=== PATIENT | male | born 1975 | race Caucasian/White ===

== ENCOUNTER → 2016-08-23 | Outpatient (CLI) | payer BC ==
[~2016-08-23] MED LIST: BYSTOLIC; COMBIVENT INH14.7 GM; CRESTOR PO; FLEXERIL10 M1 PO; IBUPROFEN800 MG PO; LORTAB 7.5-5001 TAB PO; MAVIK4 MG; NEXIUM; NIASPAN PO; OYSTER CALCIUM500 MG; PERCOCET 5-3251 TAB PO; PRAVACHOL; PRILOSEC PO; TOPROL XL PO; TRICOR PO; VICODIN 5/500 T1 TAB; VICODIN 5/500 T1 TAB PO
--- NOTE | ~2016-08-23 | US37 ---
[facility] A Service of [facility] & [facility] / [facility] RADIOLOGY TEXT RESULTS PATIENT: BARAK LIANG JR LOCATION: [facility] : 77 UNIT #: [id number] AGE: [address]: Hoang Ackerman MD SEX: M ORDER DR: [id number] [facility] [address] [place], [place] [address] [id number] O MR#: [id number] Acc #: [id number] NAME: BARAK LIAGN : 1975 SEX: M STUDY DATE/TIME: 08/23/2016 14:31 UNIT: [facility] ROOM: STUDY DESCRIPTION: US Carotid W/Doppler Bilateral Attending Physician: Hoang Ackerman M.D. Referring Physician: Hoang Ackerman M.D. Ordering Physician: Hoang Ackerman M.D. Primary Care Physician: Hoang Ackerman M.D. MEDICAL IMAGING REPORT This report is preliminary unless electronic signature is present EXAM Carotid duplex scan. DATE OF EXAM 08/23/2016 HISTORY Transient cerebral ischemia. FINDINGS The right common carotid artery has no significant plaque. There is only a small amount of heterogeneous dense plaque in the proximal right internal and external carotid artery. Peak systolic velocity in the mid right internal carotid artery is 104 cm/sec with an end-diastolic velocity of 37 cm/sec. The ICA:CCA ratio on the right is 0.91. Peak systolic velocity in the right external carotid artery is 98 cm/sec. The right vertebral artery is patent with antegrade flow. The left common carotid artery has no significant plaque. There is only a small amount of dense heterogeneous plaque in the proximal left internal and external carotid arteries. Peak systolic velocity in the distal left internal carotid artery is 74 cm/sec with an end-diastolic velocity of 14 cm/sec. The ICA:CCA ratio on the left is 0.86. Peak systolic velocity in the left external carotid artery is 58 cm/sec. The left vertebral artery is patent with antegrade flow. IMPRESSION Small amount of plaque, but no significant stenosis (less than 50%) in the internal and external carotid arteries bilaterally. Patent vertebral arteries bilaterally with antegrade flow. [facility] A Service of [facility] & [facility] / [facility] RADIOLOGY TEXT RESULTS PATIENT: BARAK LIANG JR [id number] [birth year] UNIT #: [id number] AGE: [address]: Hoang Ackerman MD SEX: M ORDER DR: Dictated by... Collins Armendariz M.D. THIS IS AN ELECTRONICALLY VERIFIED REPORT Collins Armendariz M.D. at 08/26/2016 8:34 AM MEGHA/dorcas TD: 08/23/2016 23:31 JOB #: [id number] MEDICAL IMAGING REPORT Page 1 of 1 COPY
== END | disposition home or self-care (01) ==
LOC: CECH 13:34
DX: G45.9 Transient cerebral ischemic attack, unspecified (principal); I65.23 Occlusion and stenosis of bilateral carotid arteries; I51.7 Cardiomegaly
CPT/HCPCS: 93306; 93880